=== PATIENT | female | born 2000 | race Hispanic/Latino ===

== ENCOUNTER 2022-12-20 12:57 | Outpatient (CLI) ==
[~2022-12-20] VITALS: Ht 172.7 cm; Wt 73.3 kg
[2022-12-20] MEDS ORDERED: PRENTAB9 PO (13:15)
[2022-12-20] MEDS ORDERED: VITA100T59 PO (13:15)
[2022-12-20] MEDS ORDERED: FOLI400T13 PO (13:15)
[2022-12-20] MEDS ORDERED: HOME MED LIST COMPLETE! XX SCH (13:20)
[2022-12-20 13:24] VITALS: BP 120/71
== END 2022-12-20 14:25 | disposition home or self-care (01) ==
LOC: M LDO 12:57
PROVIDERS: ATTEND Obstetrics & Gynecology
DX: O47.1 False labor at or after 37 completed weeks of gestation (principal); Z3A.40 40 weeks gestation of pregnancy
CPT/HCPCS: 59025; G0463